=== PATIENT | female | born 1960 | race African-American/Black ===

== ENCOUNTER 2016-08-24 21:44 | Inpatient (IN) | payer OTHER ==
--- NOTE | 2016-08-24 22:07 | HP ---
COWS - Scale Resting Pulse: 2= [place] 101-120 Sweatin=Flushed/Facial Moisture Restless Observation: 3= Extraneous Movement Pupil Size: 2= Moderately Dilated Bone or Joint Aches: 2= Severe Diffuse Aches Runny Nose/ Eye Tearin= Runny Nose/Eyes GI Upset > 30mins: 3= Vomiting/Diarrhea Tremor Observation: 2= Slight Tremor Visible Yawning Observation: 2= >3x During Session Anxiety or Irritability: 2=Irritable/Anxious Goose Flesh Skin: 0=Smooth Skin COWS Score: 22 CIWA Score - CIWA Score Nausea/Vomitin Muscle Tremors: 3 Anxiety: 3 Agitation: 3 Paroxysmal Sweats: 2 Orientation: 0-Oriented Tacttile Disturbances: 2-Mild Itch/Numbness/Burn Auditory Disturbances: 2-Mild Harshness/Frighten Visual Disturbances: 2-Mild Sensitivity Headache: 2-Mild CIWA-Ar Total Score: 22 Admission ROS BHS - HPI Chief Complaint: I NEED HELP TO STOP USING HEROIN,ALCOHOL AND MARIJUANA Allergies/Adverse Reactions: Allergies Allergy/AdvReac Type Severity Reaction Status Date / Time No Known Allergies Allergy Verified 08/24/16 22:08 History of Present Illness: THIS 55 YEARS OLD FEMALE WITH HERIN,ALCOHOL NAD MARIJUANA DEPENDENCE,WITHDRAWAL SYMPTOM,NEVER BEEN IN DETOX BEFORE, HTN HYPERCHOLESTEROLEMIA BIPOLAR DISORDER PTSD Exam Limitations: No Limitations - Ebola screening Have you traveled outside of the country in the last 21 days: No (N) Have you had contact with anyone from an Ebola affected area: No Do you have a fever: No - Review of Systems Constitutional: Chills, Diaphoresis, Loss of Appetite, Malaise, Night Sweats, Changes in sleep, Weakness EENT: reports: Tearing, Nose Congestion Respiratory: reports: Other (ASTHMA) Cardiac: reports: Palpitations GI: reports: Diarrhea, Nausea, Vomiting, Abdominal cramping : reports: No Symptoms Reported Musculoskeletal: reports: Joint Pain, Muscle Pain, Joint Stiffness Integumentary: reports: Dryness Neuro: reports: Headache, Tremors Endocrine: reports: No Symptoms Reported Hematology: reports: No Symptoms Reported Psychiatric: reports: other (PTSD,BIPOLAR DISORDER) Patient History - Patient Medical History Hx Anemia: Yes (ON IRON) Hx Asthma: Yes (ON ALBUTEROL INHALER) Hx Chronic Obstructive Pulmonary Disease (COPD): No Hx Cancer: No Hx Cardiac Disorders: No Hx Congestive Heart Failure: No Hx Hypertension: Yes (ON ATENOLOL 50 MGS PO DAILY) Hx Hypercholesterolemia: Yes (PREVASTATIN 20 MGS HS) Hx Pacemaker: No HX Cerebrovascular Accident: No Hx Seizures: No Hx Dementia: No Hx Diabetes: No Hx Gastrointestinal Disorders: No Hx Liver Disease: No Hx Genitourinary Disorders: No Hx Sexually Transmitted Disorders: No Hx Renal Disease (ESRD): No Hx Thyroid Disease: No Hx Human Immunodeficiency Virus (HIV): No (LAST 08/22 NEGATIVE) Hx Hepatitis C: Yes (TREATED) Hx Depression: No Hx Suicide Attempt: Yes (OVERDOSE LAST 2 YEARS AGO) Hx Bipolar Disorder: Yes Hx Schizophrenia: No Other Medical History: PTSD,NO SUICIDAL,NO HOMICIDAL - Patient Surgical History Hx Orthopedic Surgery: Yes (MULTIPLE SUGERY IN THE BACK 05/20 HERMAN L, OSTEOMYELITITS 12/14/2015 [place]) - PPD History Documented Results: Negative w/o proof Implanted On Prior [facility] Admission?: No PPD to be Administered?: Yes - Reproductive History Patient is a Female of Child Bearing Age (11 -55 yrs old): Yes Patient : No - Smoking Cessation Smoking history: Never smoked - Substance & Tx. History Hx Alcohol Use: Yes Hx Substance Use: Yes Substance Use Type: Alcohol, Heroin, Marijuana Hx Substance Use Treatment: No - Substances Abused Heroin Route: Inhalation Frequency: Daily Amount used: 6 BAGS Age of first use: 20 Date of Last Use: 08/24/16 Alcohol Route: Oral Frequency: Daily Amount used: 1 PINT OF WHISKEY/3 OF 25 OZS OF BEER Age of first use: 14 Date of Last Use: 08/24/16 Marijuana/Hashish Route: Smoking Amount used: 30$ Age of first use: 14 Date of Last Use: 08/24/16 Family Disease History - Family Disease History Family History: Denies Admission Physical Exam S - Physical General Appearance: Yes: Moderate Distress, Tremorous, Irritable, Sweating, Anxious HEENTM: Yes: Nasal Congestion, Rhinorrhea Respiratory: Yes: Lungs Clear Neck: Yes: Within Normal Limits Breast: Yes: Within Normal Limits Cardiology: Yes: Regular Rate, S1, S2, Tachycardia Abdominal: Yes: Within Normal Limits, Normal Bowel Sounds, Non Tender, Flat, Soft Genitourinary: Yes: Within Normal Limits Back: Yes: Muscle Spasm Musculoskeletal: Yes: Back pain, Joint Stiffness, Muscle Pain Extremities: Yes: Tremors Neurological: Yes: Within Normal Limits, 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 NML intact, Alert, Motor Strength 5/5 Integumentary: Yes: Dry Lymphatic: Yes: Within Normal Limits - Diagnostic (1) Opioid dependence with withdrawal Current Visit: Yes Status: Acute (2) Alcohol dependence with uncomplicated withdrawal Current Visit: Yes Status: Acute (3) Cannabis dependence Current Visit: Yes Status: Acute (4) Essential hypertension Current Visit: Yes Status: Acute (5) Hypercholesteremia Current Visit: Yes Status: Acute (6) PTSD (post-traumatic stress disorder) Current Visit: Yes Status: Acute (7) Bipolar disorder Current Visit: Yes Status: Acute (8) Previous back surgery Current Visit: Yes Status: Acute (9) Osteomyelitis Current Visit: Yes Status: Acute Cleared for Admission BHS - Detox or Rehab S Level of Care: Medically Managed Detox Regimen/Protocol: Methadone/Librium BHS Breath Alcohol Content Breath Alcohol Content: 0.090 Vital Signs - Vital Signs Vital Signs Refused: No Temperature: 97.2 F Temperature Source: Oral Pulse Rate: 109 Respiratory Rate: 20 Blood Pressure: 133/83 BP Location: Left Arm - Height Height: 5 ft 3 in - Weight Weight: 170 lb Body Mass Index (BMI): 30.1 Urine Pregancy Test - Test Device Lot Number: [id number] Expiration Date: 02/02/18 - Control Horizontal Line in Upper Control Window?: Yes - Result Urine Test Results: Negative- NO Line Present Urine Drug Screen - Test Device Lot Number: [id number] Expiration Date: 11/02/17 - Control Is Test Valid: Yes - Results Drug Screen Negative: No Urine Drug Screen Results: THC-Marijuana, OPI-Opiates, TCA-Tricyclic Antidepress , OXY-Oxycodone
[2016-08-24 22:33] VITALS: BMI 30.1
[2016-08-24] MEDS ORDERED: guaiFENesin/D-METHORPHAN HB 10 ML UNIT-DOSE CUPS PO PRN (22:39)
[2016-08-24] MEDS ORDERED: METHADONE HCL 10 MG TABLET (FOR DETOX USE ONLY) PO ONE ×2 (22:39→23:00)
[2016-08-24] MEDS ORDERED: LOPERAMIDE HCL 2 MG CAPSULE PO PRN (22:39)
[2016-08-24] MEDS ORDERED: chlordiazePOXIDE HCL 25 MG CAPSULE PO PRN (22:39)
[2016-08-24] MEDS ORDERED: MENTHOL/PHENOL 1 EACH UD MM PRN (22:39)
[2016-08-24] MEDS ORDERED: MAG HYDROX/AL HYDROX/SIMETH 30 ML UNIT-DOSE CUP PO PRN (22:39)
[2016-08-24] MEDS ORDERED: MAGNESIUM HYDROX 2400MG/30ML ORAL SUSPENSION 30 ML CUP PO PRN (22:39)
[2016-08-24] MEDS ORDERED: P-EPHED 60MG/TRIPROLIDI 2.5MG TABLET PO PRN (22:39)
[2016-08-24] MEDS ORDERED: MAGNESIUM CITRATE 300 ML BOTTLE PO PRN (22:39)
[2016-08-24] MEDS ORDERED: ACETAMINOPHEN 325 MG TABLET (FP) PO PRN (22:39)
[2016-08-24] MEDS ORDERED: IBUPROFEN 400 MG TABLET (FP) PO PRN (22:39)
[2016-08-24] MEDS: chlordiazePOXIDE HCL 25 MG CAPSULE PO SCH (23:17)
[2016-08-24] MEDS ORDERED: ALBUTEROL SO4 6.7 GM HFA INHALER IH PRN (23:40)
[2016-08-25] MEDS: chlordiazePOXIDE HCL 25 MG CAPSULE PO SCH ×4 (06:23→22:33)
[2016-08-25] MEDS ORDERED: METHADONE HCL 10 MG TABLET (FOR DETOX USE ONLY) PO SCH (10:00)
[2016-08-25 10:05] LABS: ALBUMIN 3.7 g/dl (3.4-5.0); ALK PHOS 90 U/L (45-117); ANION GAP 10 (8-16); BILIRUBIN,TOTAL 0.3 mg/dL (0.2-1.0); CALCIUM 9.1 mg/dL (8.5-10.1); CO2 30 mmol/L (21-32); CREATININE 0.9 mg/dL (0.55-1.02); GLUCOSE,RANDOM 114 mg/dL (74-106); SGOT/AST 27 U/L (15-37); SGPT/ALT 25 U/L (12-78); TOT PROT 7.4 g/dl (6.4-8.2)
[2016-08-25 10:10] LABS: MCH 31.5 pg (25.7-33.7); MCHC 33.7 g/dl (32.0-36.0); MEAN CELL VOLUME 93.5 fl (80-96); PLATELET COUNT 328 K/MM3 (134-434); RDW 12.5 % (11.6-15.6); WHITE BLOOD COUNT 6.2 K/mm3 (4.0-10.0)
[2016-08-25 10:34] LABS: URINE APPEARANCE SLCLOUDY; URINE BILIRUBIN NEGATIVE (NEGATIVE); URINE BLOOD NEGATIVE (NEGATIVE); URINE COLOR YELLOW; URINE GLUCOSE (UA) NEGATIVE (NEGATIVE); URINE KETONE NEGATIVE (NEGATIVE); URINE NITRITE NEGATIVE (NEGATIVE); URINE PROTEIN NEGATIVE (NEGATIVE); URINE UROBILINOGEN NEGATIVE E.U./dl (0.2-1.0)
[2016-08-25] MEDS: PRENATAL VITAMINS W/ FOLIC ACID TABLET (FP) PO SCH (10:42)
[2016-08-25] MEDS: ATENOLOL 50 MG TABLET (FP) PO SCH (10:42)
[2016-08-25] MEDS: FERROUS SO4 325 MG TABLET (FP) PO SCH ×2 (10:42→22:32)
[2016-08-25 11:14] LABS: URINE LEUK ESTERASE TRACE (NEGATIVE)
[2016-08-25 11:19] LABS: URINE RBC 1 /hpf (0-3); URINE WBC 3 /hpf (3-5); YEAST RARE
[2016-08-25] MEDS ORDERED: PNEUMOC 13-VAL CONJ-DIP CRM/PF 0.5 ML DISP.SYRIN IM ONE (12:00)
[2016-08-25] MEDS ORDERED: PNEUMOCOCCAL 23 VACCINE 0.5 ML VIAL IM ONE (12:00)
--- NOTE | 2016-08-25 12:47 | PN ---
[facility] CIWA - CIWA Score Nausea/Vomitin Muscle Tremors: 3 Anxiety: 3 Agitation: 2 Paroxysmal Sweats: 1-Minimal Palms Moist Orientation: 0-Oriented Tacttile Disturbances: 1-Very Mild Itch/Numbness Auditory Disturbances: 1-Very Mild Visual Disturbances: 1-Very Mild Sensitivity Headache: 2-Mild CIWA-Ar Total Score: 17 BHS COWS - Scale Resting Pulse: 0= [place] 80 or Below Sweatin= Chills/Flushing Restless Observation: 3= Extraneous Movement Pupil Size: 1= Pupils >than Normal Bone or Joint Aches: 2= Severe Diffuse Aches Runny Nose/ Eye Tearin= Runny Nose/Eyes GI Upset > 30mins: 2= Nausea/Diarrhea Tremor Observation of Outstretched Hands: 2= Slight Tremor Visible Yawning Observation: 1= 1-2x During Session Anxiety or Irritability: 2=Irritable/Anxious Goose Flesh Skin: 0=Smooth Skin COWS Score: 16 S Progress Note (SOAP) Subjective: ALERT,IRRITABLE,ANXIOUS,INTERRUPTED SLEEP,PAIN IN THE BODY,BACK Objective: 08/25/16 12:45 Vital Signs Temperature 97.5 F L 08/25/16 10:00 Pulse Rate 79 08/25/16 10:00 Respiratory Rate 18 08/25/16 10:00 Blood Pressure 115/81 08/25/16 10:00 O2 Sat by Pulse Oximetry (%) 08/25/16 12:46 EKG NSR WITH 1ST DEGREE AV BLOCK NO CHEST PAIN,NO SOB,NO DIZZINESS 08/25/16 12:47 Laboratory Last Values WBC 6.2 K/mm3 (4.0-10.0) 08/25/16 06:15 RBC 4.06 M/mm3 (3.60-5.2) 08/25/16 06:15 Hgb 12.8 GM/dL (10.7-15.3) 08/25/16 06:15 Hct 38.0 % (32.4-45.2) 08/25/16 06:15 MCV 93.5 fl (80-96) 08/25/16 06:15 MCHC 33.7 g/dl (32.0-36.0) 08/25/16 06:15 RDW 12.5 % (11.6-15.6) 08/25/16 06:15 Plt Count 328 K/MM3 (134-434) 08/25/16 06:15 MPV 7.0 fl (7.5-11.1) L 08/25/16 06:15 Sodium 143 mmol/L (136-145) 08/25/16 06:15 Potassium 3.3 mmol/L (3.5-5.1) L 08/25/16 06:15 Chloride 103 mmol/L (98-107) 08/25/16 06:15 Carbon Dioxide 30 mmol/L (21-32) 08/25/16 06:15 Anion Gap 10 (8-16) 08/25/16 06:15 BUN 16 mg/dL (7-18) 08/25/16 06:15 Creatinine 0.9 mg/dL (0.55-1.02) 08/25/16 06:15 Creat Clearance w eGFR > 60 (>60) 08/25/16 06:15 Random Glucose 114 mg/dL (74-106) H 08/25/16 06:15 Calcium 9.1 mg/dL (8.5-10.1) 08/25/16 06:15 Total Bilirubin 0.3 mg/dL (0.2-1.0) 08/25/16 06:15 AST 27 U/L (15-37) 08/25/16 06:15 ALT 25 U/L (12-78) 08/25/16 06:15 Alkaline Phosphatase 90 U/L (45-117) 08/25/16 06:15 Total Protein 7.4 g/dl (6.4-8.2) 08/25/16 06:15 Albumin 3.7 g/dl (3.4-5.0) 08/25/16 06:15 Urine Color Yellow 08/25/16 07:00 Urine Appearance Slcloudy 08/25/16 07:00 Urine pH 7.0 (5.0-8.0) 08/25/16 07:00 Ur Specific [place] 1.020 (1.001-1.035) 08/25/16 07:00 Urine Protein Negative (NEGATIVE) 08/25/16 07:00 Urine Glucose (UA) Negative (NEGATIVE) 08/25/16 07:00 Urine Ketones Negative (NEGATIVE) 08/25/16 07:00 Urine Blood Negative (NEGATIVE) 02/20/17 07:00 Urine Nitrite Negative (NEGATIVE) 08/25/16 07:00 Urine Bilirubin Negative (NEGATIVE) 08/25/16 07:00 Urine Urobilinogen Negative E.U./dl (0.2-1.0) 08/25/16 07:00 Ur Leukocyte Esterase Trace (NEGATIVE) H 08/25/16 07:00 Urine RBC 1 /hpf (0-3) 08/25/16 07:00 Urine WBC 3 /hpf (3-5) 08/25/16 07:00 Ur Epithelial Cells Few /hpf (FEW) 08/25/16 07:00 Urine Yeast Rare 08/25/16 07:00 08/25/16 12:47 LABS PENDING Assessment: 08/25/16 12:45 08/25/16 12:47 WITHDRAWAL SYMPTOM Plan: CONTINUE DETOX,K IS 3.3,K DUR 20 MEQ PO DAILY FOR HYPOKALEMIA,INITIAL GLUCSE IS 114,WILL MONITORING GLUCOSE BGM MONITORING
[2016-08-25] MEDS ORDERED: POTASSIUM CHLORIDE TABS 20 MEQ TABLET.ER (FP) PO ONE (12:49)
[2016-08-25] MEDS: ESCITALOPRAM OXALATE 20 MG TABLET (FP) PO SCH (14:05)
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
[2016-08-25] MEDS: ATORVASTATIN CA 20 MG TABLET (FP) PO SCH (22:33)
[2016-08-25] MEDS: THIAMINE HCL 100 MG TABLET (FP) PO SCH (22:33)
[2016-08-25] MEDS: TOPIRAMATE 100 MG TABLET PO SCH (22:33)
[2016-08-25] MEDS: diphenhydrAMINE HCL 50 MG CAPSULE PO PRN (22:34)
[2016-08-26] MEDS: chlordiazePOXIDE HCL 25 MG CAPSULE PO SCH ×3 (05:44→17:19)
[2016-08-26] MEDS: LURASIDONE HCL 20 MG TABLET PO SCH (10:55)
[2016-08-26] MEDS: METHADONE HCL 5 MG TABLET (FOR DETOX USE ONLY) PO SCH (10:55)
[2016-08-26] MEDS: ESCITALOPRAM OXALATE 20 MG TABLET (FP) PO SCH (10:55)
[2016-08-26] MEDS: ATENOLOL 50 MG TABLET (FP) PO SCH (10:55)
[2016-08-26] MEDS: POTASSIUM CHLORIDE TABS 20 MEQ TABLET.ER (FP) PO SCH (10:55)
[2016-08-26] MEDS: FERROUS SO4 325 MG TABLET (FP) PO SCH ×2 (10:55→22:33)
[2016-08-26] MEDS: PRENATAL VITAMINS W/ FOLIC ACID TABLET (FP) PO SCH (10:55)
--- NOTE | 2016-08-26 13:40 | PN ---
S CIWA - CIWA Score Nausea/Vomitin Muscle Tremors: 2 Anxiety: 3 Agitation: 2 Paroxysmal Sweats: 3 Orientation: 0-Oriented Tacttile Disturbances: 2-Mild Itch/Numbness/Burn Auditory Disturbances: 0-None Visual Disturbances: 0-None Headache: 0-None Present CIWA-Ar Total Score: 14 BHS COWS - Scale Resting Pulse: 1= [place] 81-100 Sweatin=Flushed/Facial Moisture Restless Observation: 1= Difficult to Sit Still Pupil Size: 1= Pupils >than Normal Bone or Joint Aches: 2= Severe Diffuse Aches Runny Nose/ Eye Tearin= Nasal Congestion GI Upset > 30mins: 1= Stomach Cramp Tremor Observation of Outstretched Hands: 1= Tremor [place], Not Seen Yawning Observation: 1= 1-2x During Session Anxiety or Irritability: 2=Irritable/Anxious Goose Flesh Skin: 0=Smooth Skin COWS Score: 13 S Progress Note (SOAP) Subjective: interrrupted sleep, sweats, shakes ,cough Objective: 08/26/16 13:35 Vital Signs Temperature 97.5 F L 08/26/16 10:15 Pulse Rate 86 08/26/16 10:15 Respiratory Rate 18 08/26/16 10:15 Blood Pressure 122/76 08/26/16 10:15 O2 Sat by Pulse Oximetry (%) Laboratory Tests 08/25/16 08/25/16 08/25/16 06:15 06:15 06:15 WBC 6.2 RBC 4.06 Hgb 12.8 Hct 38.0 MCV 93.5 MCHC 33.7 RDW 12.5 Plt Count 328 MPV 7.0 L Sodium 143 Potassium 3.3 L Chloride 103 Carbon Dioxide 30 Anion Gap 10 BUN 16 Creatinine 0.9 Creat Clearance w eGFR > 60 Random Glucose 114 H Calcium 9.1 Total Bilirubin 0.3 AST 27 ALT 25 Alkaline Phosphatase 90 Total Protein 7.4 Albumin 3.7 Urine Color Urine Appearance Urine pH Ur Specific [place] Urine Protein Urine Glucose (UA) Urine Ketones Urine Blood Urine Nitrite Urine Bilirubin Urine Urobilinogen Ur Leukocyte Esterase Urine RBC Urine WBC Ur Epithelial Cells Urine Yeast RPR Titer Nonreactive 08/25/16 07:00 WBC RBC Hgb Hct MCV MCHC RDW Plt Count MPV Sodium Potassium Chloride Carbon Dioxide Anion Gap BUN Creatinine Creat Clearance w eGFR Random Glucose Calcium Total Bilirubin AST ALT Alkaline Phosphatase Total Protein Albumin Urine Color Yellow Urine Appearance Slcloudy Urine pH 7.0 Ur Specific [place] 1.020 Urine Protein Negative Urine Glucose (UA) Negative Urine Ketones Negative Urine Blood Negative Urine Nitrite Negative Urine Bilirubin Negative Urine Urobilinogen Negative Ur Leukocyte Esterase Trace H Urine RBC 1 Urine WBC 3 Ur Epithelial Cells Few Urine Yeast Rare RPR Titer pt aox3 i n nad occas cough lungs clear to a/p 08/26/16 13:38 pulse ox- 99% on RA 08/26/16 17:59 Assessment: 08/26/16 13:36 withdrawl sx's cough , low grade fever likey viral synd, hypokalemia being tx'ed 08/26/16 13:39 Plan: cont. detox increase fluids monitr temps robitussin prn
--- NOTE | 2016-08-26 21:37 | EKG ---
Test Reason : Blood Pressure : / mmHG Vent. Rate : 086 BPM Atrial Rate : 086 BPM P-R Int : 236 ms QRS Dur : 086 ms QT Int : 406 ms P-R-T Axes : 058 -16 020 degrees QTc Int : 485 ms SINUS RHYTHM WITH 1ST DEGREE A-V BLOCK POSSIBLE LEFT ATRIAL ENLARGEMENT POSSIBLE INFERIOR INFARCT , AGE UNDETERMINED ANTEROSEPTAL INFARCT , AGE UNDETERMINED ABNORMAL ECG NO PREVIOUS ECGS AVAILABLE Confirmed by SUREKHA BHATTI, IFTIKHAR ([id number]) on 08/26/2016 9:37:09 PM Referred By: Confirmed By:IFTIKHAR IRBY MD
[2016-08-26] MEDS: chlordiazePOXIDE 5 MG CAPSULE PO SCH (22:33)
[2016-08-26] MEDS: TOPIRAMATE 100 MG TABLET PO SCH (22:33)
[2016-08-26] MEDS: diphenhydrAMINE HCL 50 MG CAPSULE PO PRN (22:33)
[2016-08-26] MEDS: THIAMINE HCL 100 MG TABLET (FP) PO SCH (22:33)
[2016-08-26] MEDS: ATORVASTATIN CA 20 MG TABLET (FP) PO SCH (22:33)
[2016-08-27] MEDS: chlordiazePOXIDE 5 MG CAPSULE PO SCH ×3 (05:58→18:08)
[2016-08-27] MEDS: POTASSIUM CHLORIDE TABS 20 MEQ TABLET.ER (FP) PO SCH (10:26)
[2016-08-27] MEDS: FERROUS SO4 325 MG TABLET (FP) PO SCH ×2 (10:26→22:40)
[2016-08-27] MEDS: PRENATAL VITAMINS W/ FOLIC ACID TABLET (FP) PO SCH (10:26)
[2016-08-27] MEDS: METHADONE HCL 5 MG TABLET (FOR DETOX USE ONLY) PO SCH (10:26)
[2016-08-27] MEDS: ESCITALOPRAM OXALATE 20 MG TABLET (FP) PO SCH (10:27)
[2016-08-27] MEDS: ATENOLOL 50 MG TABLET (FP) PO SCH (10:27)
[2016-08-27] MEDS: LURASIDONE HCL 20 MG TABLET PO SCH (10:27)
[2016-08-27] MEDS ORDERED: IBUPROFEN 600 MG TABLET (FP) PO PRN (11:24)
--- NOTE | 2016-08-27 11:26 | PN ---
BHS Progress Note (SOAP) Subjective: body aches sweats shakes chills restless less nausea Objective: 08/27/16 11:29 Vital Signs Temperature 98.1 F 08/27/16 10:27 Pulse Rate 77 08/27/16 10:27 Respiratory Rate 20 08/27/16 10:27 Blood Pressure 114/78 08/27/16 10:27 O2 Sat by Pulse Oximetry (%) Laboratory Tests 08/25/16 08/25/16 08/25/16 06:15 06:15 06:15 WBC 6.2 RBC 4.06 Hgb 12.8 Hct 38.0 MCV 93.5 MCHC 33.7 RDW 12.5 Plt Count 328 MPV 7.0 L Sodium 143 Potassium 3.3 L Chloride 103 Carbon Dioxide 30 Anion Gap 10 BUN 16 Creatinine 0.9 Creat Clearance w eGFR > 60 Random Glucose 114 H Calcium 9.1 Total Bilirubin 0.3 AST 27 ALT 25 Alkaline Phosphatase 90 Total Protein 7.4 Albumin 3.7 Urine Color Urine Appearance Urine pH Ur Specific [place] Urine Protein Urine Glucose (UA) Urine Ketones Urine Blood Urine Nitrite Urine Bilirubin Urine Urobilinogen Ur Leukocyte Esterase Urine RBC Urine WBC Ur Epithelial Cells Urine Yeast RPR Titer Nonreactive 08/25/16 07:00 WBC RBC Hgb Hct MCV MCHC RDW Plt Count MPV Sodium Potassium Chloride Carbon Dioxide Anion Gap BUN Creatinine Creat Clearance w eGFR Random Glucose Calcium Total Bilirubin AST ALT Alkaline Phosphatase Total Protein Albumin Urine Color Yellow Urine Appearance Slcloudy Urine pH 7.0 Ur Specific [place] 1.020 Urine Protein Negative Urine Glucose (UA) Negative Urine Ketones Negative Urine Blood Negative Urine Nitrite Negative Urine Bilirubin Negative Urine Urobilinogen Negative Ur Leukocyte Esterase Trace H Urine RBC 1 Urine WBC 3 Ur Epithelial Cells Few Urine Yeast Rare RPR Titer awake/alert ambulating no acute distress Assessment: 08/27/16 11:29 withdrawal sx Plan: continue detox increase fluids flexiril 10mg prn motrin 600mg prn zofran sl
[2016-08-27] MEDS ORDERED: ONDANSETRON *ODT* 4 MG TABLET SL PRN (11:35)
[2016-08-27] MEDS: THIAMINE HCL 100 MG TABLET (FP) PO SCH (22:39)
[2016-08-27] MEDS: chlordiazePOXIDE HCL 10 MG CAPSULE PO SCH (22:39)
[2016-08-27] MEDS: TOPIRAMATE 100 MG TABLET PO SCH (22:39)
[2016-08-27] MEDS: CYCLOBENZAPRINE HCL 10 MG TABLET (FP) PO PRN (22:40)
[2016-08-27] MEDS: ATORVASTATIN CA 20 MG TABLET (FP) PO SCH (22:40)
[2016-08-27] MEDS: hydrOXYzine PAMOATE 50 MG CAPSULE (FP) PO PRN (22:42)
[2016-08-28] MEDS: chlordiazePOXIDE HCL 10 MG CAPSULE PO SCH ×3 (05:33→17:05)
[2016-08-28] MEDS ORDERED: METHADONE HCL 10 MG TABLET (FOR DETOX USE ONLY) PO SCH (10:00)
--- NOTE | 2016-08-28 10:13 | PN ---
BHS Progress Note (SOAP) Subjective: decreased appetite Objective: 08/28/16 10:12 Vital Signs Temperature 98.1 F 08/28/16 09:54 Pulse Rate 69 08/28/16 09:54 Respiratory Rate 18 08/28/16 09:54 Blood Pressure 112/81 08/28/16 09:54 O2 Sat by Pulse Oximetry (%) Laboratory Tests 08/25/16 08/25/16 08/25/16 06:15 06:15 06:15 WBC 6.2 RBC 4.06 Hgb 12.8 Hct 38.0 MCV 93.5 MCHC 33.7 RDW 12.5 Plt Count 328 MPV 7.0 L Sodium 143 Potassium 3.3 L Chloride 103 Carbon Dioxide 30 Anion Gap 10 BUN 16 Creatinine 0.9 Creat Clearance w eGFR > 60 Random Glucose 114 H Calcium 9.1 Total Bilirubin 0.3 AST 27 ALT 25 Alkaline Phosphatase 90 Total Protein 7.4 Albumin 3.7 Urine Color Urine Appearance Urine pH Ur Specific [place] Urine Protein Urine Glucose (UA) Urine Ketones Urine Blood Urine Nitrite Urine Bilirubin Urine Urobilinogen Ur Leukocyte Esterase Urine RBC Urine WBC Ur Epithelial Cells Urine Yeast RPR Titer Nonreactive 08/25/16 07:00 WBC RBC Hgb Hct MCV MCHC RDW Plt Count MPV Sodium Potassium Chloride Carbon Dioxide Anion Gap BUN Creatinine Creat Clearance w eGFR Random Glucose Calcium Total Bilirubin AST ALT Alkaline Phosphatase Total Protein Albumin Urine Color Yellow Urine Appearance Slcloudy Urine pH 7.0 Ur Specific [place] 1.020 Urine Protein Negative Urine Glucose (UA) Negative Urine Ketones Negative Urine Blood Negative Urine Nitrite Negative Urine Bilirubin Negative Urine Urobilinogen Negative Ur Leukocyte Esterase Trace H Urine RBC 1 Urine WBC 3 Ur Epithelial Cells Few Urine Yeast Rare RPR Titer Assessment: 08/28/16 10:12 withdrawal sx's Plan: cont. detox increase fluids k replaced d/c in am
[2016-08-28] MEDS: PRENATAL VITAMINS W/ FOLIC ACID TABLET (FP) PO SCH (10:24)
[2016-08-28] MEDS: POTASSIUM CHLORIDE TABS 20 MEQ TABLET.ER (FP) PO SCH (10:25)
[2016-08-28] MEDS: FERROUS SO4 325 MG TABLET (FP) PO SCH ×2 (10:25→22:18)
[2016-08-28] MEDS: LURASIDONE HCL 20 MG TABLET PO SCH (10:25)
[2016-08-28] MEDS: ATENOLOL 50 MG TABLET (FP) PO SCH (10:25)
[2016-08-28] MEDS: ESCITALOPRAM OXALATE 20 MG TABLET (FP) PO SCH (10:25)
[2016-08-28] MEDS: TOPIRAMATE 100 MG TABLET PO SCH (22:17)
[2016-08-28] MEDS: THIAMINE HCL 100 MG TABLET (FP) PO SCH (22:17)
[2016-08-28] MEDS: CYCLOBENZAPRINE HCL 10 MG TABLET (FP) PO PRN (22:17)
[2016-08-28] MEDS: ATORVASTATIN CA 20 MG TABLET (FP) PO SCH (22:18)
[2016-08-28] MEDS: hydrOXYzine PAMOATE 50 MG CAPSULE (FP) PO PRN (22:18)
[2016-08-29] MEDS ORDERED: METHADONE HCL 5 MG TABLET (FOR DETOX USE ONLY) PO SCH (06:00)
[2016-08-29 06:53] VITALS: BP 100/60; PULSE 70; TEMP 97.5
--- NOTE | 2016-08-29 15:17 | DS ---
[facility] Detox Discharge Summary Admission Date: 08/24/16 Discharge Date: 08/29/16 - History Present History: Alcohol Dependence, Cannabis Dependence, Opioid Dependence Additional Comments: ADVISED PATIENT TO FOLLOW-UP WITH [facility] / REHAB MEDICAL PROVIDER AFTER DISCHARGE FROM DETOX FOR GENERAL MEDICAL ASSESSMENT AND FOR ABNORMAL ADMISSION LAB VALUES. Pertinent Past History: HTN, Anemia, ASthma, Hep C, Bi-Polar Disorder, Osteomyelitis, PTSD. - Physical Exam Results Vital Signs: Vital Signs Temperature 97.5 F L 08/29/16 06:53 Pulse Rate 70 08/29/16 06:53 Respiratory Rate 16 08/29/16 06:53 Blood Pressure 100/60 08/29/16 06:53 O2 Sat by Pulse Oximetry (%) Pertinent Admission Physical Exam Findings: WITHDRAWAL SYMPTOMS. Laboratory Last Values WBC 6.2 K/mm3 (4.0-10.0) 08/25/16 06:15 RBC 4.06 M/mm3 (3.60-5.2) 08/25/16 06:15 Hgb 12.8 GM/dL (10.7-15.3) 08/25/16 06:15 Hct 38.0 % (32.4-45.2) 08/25/16 06:15 MCV 93.5 fl (80-96) 08/25/16 06:15 MCHC 33.7 g/dl (32.0-36.0) 08/25/16 06:15 RDW 12.5 % (11.6-15.6) 08/25/16 06:15 Plt Count 328 K/MM3 (134-434) 08/25/16 06:15 MPV 7.0 fl (7.5-11.1) L 08/25/16 06:15 Sodium 143 mmol/L (136-145) 08/25/16 06:15 Potassium 3.3 mmol/L (3.5-5.1) L 08/25/16 06:15 Chloride 103 mmol/L (98-107) 08/25/16 06:15 Carbon Dioxide 30 mmol/L (21-32) 08/25/16 06:15 Anion Gap 10 (8-16) 08/25/16 06:15 BUN 16 mg/dL (7-18) 08/25/16 06:15 Creatinine 0.9 mg/dL (0.55-1.02) 08/25/16 06:15 Creat Clearance w eGFR > 60 (>60) 08/25/16 06:15 Random Glucose 114 mg/dL (74-106) H 08/25/16 06:15 Calcium 9.1 mg/dL (8.5-10.1) 08/25/16 06:15 Total Bilirubin 0.3 mg/dL (0.2-1.0) 08/25/16 06:15 AST 27 U/L (15-37) 08/25/16 06:15 ALT 25 U/L (12-78) 08/25/16 06:15 Alkaline Phosphatase 90 U/L (45-117) 08/25/16 06:15 Total Protein 7.4 g/dl (6.4-8.2) 08/25/16 06:15 Albumin 3.7 g/dl (3.4-5.0) 08/25/16 06:15 Urine Color Yellow 08/25/16 07:00 Urine Appearance Slcloudy 08/25/16 07:00 Urine pH 7.0 (5.0-8.0) 08/25/16 07:00 Ur Specific [place] 1.020 (1.001-1.035) 08/25/16 07:00 Urine Protein Negative (NEGATIVE) 08/25/16 07:00 Urine Glucose (UA) Negative (NEGATIVE) 08/25/16 07:00 Urine Ketones Negative (NEGATIVE) 08/25/16 07:00 Urine Blood Negative (NEGATIVE) 08/25/16 07:00 Urine Nitrite Negative (NEGATIVE) 08/25/16 07:00 Urine Bilirubin Negative (NEGATIVE) 08/25/16 07:00 Urine Urobilinogen Negative E.U./dl (0.2-1.0) 08/25/16 07:00 Ur Leukocyte Esterase Trace (NEGATIVE) H 08/25/16 07:00 Urine RBC 1 /hpf (0-3) 08/25/16 07:00 Urine WBC 3 /hpf (3-5) 08/25/16 07:00 Ur Epithelial Cells Few /hpf (FEW) 08/25/16 07:00 Urine Yeast Rare 08/25/16 07:00 RPR Titer Nonreactive (NONREACTIVE) 08/25/16 06:15 LABS NOTED. - Treatment Hospital Course: Detox Protocol Followed, Detoxed Safely, Responded well, Discharged Condition Good - Medication Discharge Medications: Ambulatory Orders Atenolol [Tenormin -] 50 mg PO DAILY 08/24/16 Atorvastatin Ca [Lipitor] 20 mg PO HS 08/24/16 Escitalopram Oxalate [Lexapro -] 20 mg PO DAILY 08/24/16 Lurasidone HCl [Latuda -] 60 mg PO DAILY 08/24/16 Topiramate [Topamax -] 200 mg PO BID 08/24/16 - Diagnosis (1) Alcohol dependence with uncomplicated withdrawal Status: Acute (2) Bipolar disorder Status: Chronic Qualifiers: Active/Remission status: remission status unspecified Qualified Code (s): F31.9 - Bipolar disorder, unspecified (3) Cannabis dependence Status: Acute (4) Essential hypertension Status: Chronic (5) Hypercholesteremia Status: Chronic (6) Opioid dependence with withdrawal Status: Acute (7) Osteomyelitis Status: Acute Qualifiers: Osteomyelitis location: unspecified site Chronicity: unspecified Qualified Code(s): M86.9 - Osteomyelitis, unspecified (8) PTSD (post-traumatic stress disorder) Status: Chronic (9) Previous back surgery Status: Chronic (10) Anemia Status: Chronic Qualifiers: Anemia type: unspecified type Qualified Code(s): D64.9 - Anemia, unspecified (11) Asthma Status: Chronic Qualifiers: Asthma severity: mild intermittent Asthma complication type: uncomplicated Qualified Code(s): J45.20 - Mild intermittent asthma, uncomplicated (12) Insomnia Status: Chronic Qualifiers: Insomnia type: unspecified Qualified Code(s): G47.00 - Insomnia, unspecified - AMA Did Patient Leave Against Medical Advice: No
== END 2016-08-29 09:23 | disposition home or self-care (01) | DRG 773 ==
LOC: YASAS 21:44 → Y6N 22:28
PROVIDERS: ADMIT Internal Medicine; ATTEND Internal Medicine
PROC: HZ2ZZZZ Detoxification Services for Substance Abuse Treatment (ICD-10-PCS; principal; 2016-08-29)
DX: F11.23 Opioid dependence with withdrawal (principal); F10.230 Alcohol dependence with withdrawal, uncomplicated; F12.20 Cannabis dependence, uncomplicated; F43.10 Post-traumatic stress disorder, unspecified; I10 Essential (primary) hypertension; J45.20 Mild intermittent asthma, uncomplicated; E78.00 Pure hypercholesterolemia, unspecified; G47.00 Insomnia, unspecified; D64.9 Anemia, unspecified; M86.10 Other acute osteomyelitis, unspecified site
CPT/HCPCS: 36415; 80053; 81003; 81015; 85027; 86593; 90732; 93005; 93010; G0009